=== PATIENT | male | born 1955 | race Asian ===

== ENCOUNTER 2018-12-09 00:09 | Emergency (ER) | payer OTHER ==
[~2018-12-09] VITALS: Ht 162.6 cm; Wt 59.0 kg
[~2018-12-09 00:09] MED LIST: AMOX1TAB12 PO; BICARSIM FORTE125 MG PO; KETO10TA2 PO; LEVSIN/SL0.125 MG SL; ORPH100T PO; PEPCID40 MG; PEPCID40 MG PO
[2018-12-09] MEDS ORDERED: COZAAR25 MG (00:24)
[2018-12-09] MEDS ORDERED: FORTAMET1000 MG (00:24)
[2018-12-09] MEDS ORDERED: SKELAXIN800 MG PO (03:50)
== END 2018-12-09 04:07 | disposition home or self-care (01) ==
LOC: ER 00:09
DX: M62.838 Other muscle spasm (principal); R20.0 Anesthesia of skin

== ENCOUNTER 2019-08-16 12:22 | Emergency (ER) | payer OTHER ==
[~2019-08-16] VITALS: Ht 162.6 cm; Wt 61.2 kg
[~2019-08-16 12:22] MED LIST changes: +COZAAR25 MG; +FORTAMET1000 MG; +SKELAXIN800 MG PO
== END 2019-08-16 15:11 | disposition home or self-care (01) ==
LOC: ER 12:22
DX: S52.391A Other fracture of shaft of radius, right arm, initial encounter for closed fracture (principal); W18.39XA Other fall on same level, initial encounter; Y93.89 Activity, other specified; Y92.098 Other place in other non-institutional residence as the place of occurrence of the external cause; Y99.8 Other external cause status

== ENCOUNTER 2019-08-28 06:30 | Day surgery (SDC) | payer OTHER ==
[~2019-08-28 06:30] MED LIST changes: +LOSARTAN POTASS50 MG PO; +METFORMIN HCL500 MG PO
== END 2019-08-28 20:11 | disposition home or self-care (01) ==
LOC: CIR.AMB 06:30
DX: S52.331A Displaced oblique fracture of shaft of right radius, initial encounter for closed fracture (principal)

== ENCOUNTER 2020-04-10 01:17 | Inpatient (IN) | payer OTHER ==
[~2020-04-10] VITALS: Ht 162.6 cm; Wt 59.0 kg
== END 2020-04-11 11:19 | disposition home or self-care (01) | DRG 694 ==
LOC: ER 01:17 → SURH 07:16
PROVIDERS: ADMIT Urology
DX: N20.1 Calculus of ureter (principal); I10 Essential (primary) hypertension; E11.9 Type 2 diabetes mellitus without complications; R97.20 Elevated prostate specific antigen [PSA]; Z53.8 Procedure and treatment not carried out for other reasons

== ENCOUNTER 2020-05-15 02:30 | Emergency (ER) | payer OTHER ==
[~2020-05-15] VITALS: Ht 162.6 cm; Wt 59.0 kg
[2020-05-15] MEDS ORDERED: KETO10TA2 PO (07:54)
== END 2020-05-15 07:58 | disposition home or self-care (01) ==
LOC: ER 02:30
DX: N21.1 Calculus in urethra (principal); R10.32 Left lower quadrant pain